=== PATIENT | female | born 1975 | race Caucasian/White ===

== ENCOUNTER 2018-06-05 07:20 | Emergency (ER) | payer SELFPAY ==
[~2018-06-05] VITALS: Ht 172.7 cm; Wt 120.2 kg
[~2018-06-05 07:20] MED LIST: NORCO 5-325 TA1 EACH PO; NUVARING VAGIN1 EACH VG; ONE DAILY MAXI1 EAC1 PO; PROTONIX40 MG PO; VITAMIN B12-FO1 EACH PO
== END 2018-06-05 08:29 | disposition home or self-care (01) ==
LOC: ED 07:20
DX: S86.912A Strain of unspecified muscle(s) and tendon(s) at lower leg level, left leg, initial encounter (principal); Z87.891 Personal history of nicotine dependence; W01.0XXA Fall on same level from slipping, tripping and stumbling without subsequent striking against object, initial encounter
CPT/HCPCS: 73590; 99283